=== PATIENT | male | born 1970 | race Caucasian/White ===

== ENCOUNTER 2022-05-10 15:40 | Emergency (ER) | payer BC, SELFPAY ==
[2022-05-10 16:20] VITALS: BP 148/82; PULSE 70; RESP 18; TEMP 36.8; O2SAT 97; BMI 30.8
--- NOTE | 2022-05-10 20:15 | CRLHL7_ITS ---
For Patients: As a result of the Cures Act, medical imaging exams and procedure reports are released immediately into your electronic medical record. You may view this report before your referring provider. If you have questions, please contact your health care provider. INDICATION: Crush injury. TECHNIQUE: Three views of the left hand. FINDINGS: Soft tissue swelling in the proximal 4th finger. No acute left hand fracture or dislocation. No radiopaque foreign body. Dictated by Ryan Lamb MD @ 05/10/2022 8:55:10 PM Dictated by: Ryan Lamb MD @ 05/10/2022 20:55:16 (Electronically Signed)
[2022-05-10 21:04] VITALS: BP 148/82; PULSE 70; RESP 18; TEMP 36.8
--- NOTE | 2022-05-10 21:07 | ED.WOUNDLAC ---
HPI - Wound/Laceration General Chief Complaint: Laceration/Wound Stated Complaint: LEFT HAND INJURY - FINGER LAC Time Seen by Provider: 05/10/22 20:32 History of Present Illness HPI narrative: 51-year-old man accompanied by spouse who is an orthopedic nurse, with concern injury potentially fracture to his left hand. Got his hand crushed between washing machine in a concrete floor earlier today. Trapped hand was drug a little bit along the floor as well. Helping son moved. In a very congested emergency department they have waited now a long time. This injury occurred about 6 hours ago. Reports a full dermal laceration on the dorsal finger the looks of close now. Most injuries sustained to the 4th finger in the area of pain. Apparently rather stoic man, has experienced tremendous pain without much complaint in the past. This has led to more concern than by his at this point. No other injuries were sustained. Related Data Home Medications Medication Instructions Recorded Confirmed No Known Home Medications 05/10/22 05/10/22 Allergies Allergy/AdvReac Type Severity Reaction Status Date / Time No Known Drug Allergies Allergy Verified 05/10/22 16:23 Review of Systems Status of ROS: Reports: 6 or more systems reviewed and unremarkable except as noted in History and below PFSH PFS Social History Smoking Status: Never smoker Do you use any of these nicotine containing products: None How often do you have a drink containing alcohol: never AUDIT-C Alcohol total score: 0 Exam Narrative: Exam Narrative: Tall large man. Calm. Pleasant. Skin is warm and dry and only area of injury left hand. Is able to flex and extend against resistance at all joints of the hand. There are abrasions that are oozing a little serous fluid on the dorsal surface of the 5th finger. Mild swelling generally. Does not look as though the fingernail is avulsed but the final injury is right on the roberta-ungual/lunar area. The 4th finger has taken the brunt of the injury. Most swelling over the interphalangeal joint. The dorsal radial surface the middle phalanx of this finger is a scabbed over area 1 cm laceration. It is not actively bleeding. This is the deeper full dermal injury they report. He does not have marked tenderness to bony palpation over his hand.. Hand along the lateral MCP joints is mildly swollen. Well -perfused. Const: Vital Signs, click to edit/add: Vital Signs - 24 hr 05/10/22 16:20 05/10/22 21:04 Temperature 98.2 F 98.2 F Pulse Rate [Right Pulse Oximeter] 70 70 Respiratory Rate 18 18 Blood Pressure [Ri ght Upper Arm] 148/82 H 148/82 H Pulse Oximetry 97 Oxygen Delivery Me thod Room Air Documenting provider has reviewed patient's vital signs: yes Course Course Hospital Course: X-rays appear negative for fracture on my read. Soft tissue swelling. Vital Signs Vital signs: Initial Vital Signs Temperature 98.2 F 05/10/22 16:20 Temperature Source Temporal Artery Scan 05/10/22 16:20 Pulse Rate 70 05/10/22 16:20 Respiratory Rate 18 05/10/22 16:20 Blood Pressure 148/82 H 05/10/22 16:20 Blood Pressure Mean 104 05/10/22 16:20 Blood Pressure Position Sitting 05/10/22 16:20 Pulse Oximetry 97 05/10/22 16:20 Oxygen Delivery Method 05/10/22 16:20 Vital Signs Temperature 98.2 F 05/10/22 16:20 Pulse Rate 70 05/10/22 16:20 Respiratory Rate 18 05/10/22 16:20 Blood Pressure 148/82 H 05/10/22 16:20 Pulse Oximetry 97 05/10/22 16:20 Oxygen Delivery Method 05/10/22 16:20 Temperature 98.2 F 05/10/22 21:04 Pulse Rate 70 05/10/22 21:04 Respiratory Rate 18 05/10/22 21:04 Blood Pressure 148/82 H 05/10/22 21:04 Pulse Oximetry 97 05/10/22 16:20 Oxygen Delivery Method 05/10/22 16:20 MDM - Wound/Laceration MDM Narrative Medical decision making narrative: No significant active bleeding. Wounds look clean. I offered to open up this reported full dermal laceration that looks to have sealed itself off, though do not think medically necessary at this point. Does not open up with flexing or extending fingers. Given the choice, they opted to treat conservatively without suturing. I placed antibiotic ointment and Band-Aids. Does not need splinting at this time. Recommended to ice regularly. Discharge Plan Discharge Clinical Impression: Crushing injury of finger(s), Laceration of finger, Multiple abrasions Patient Disposition: Home, Self-Care Condition: Stable Additional Instructions: Thanks again for your understanding and patience. Watch for spreading redness after 2 days, marked increase in pain/swelling/erythema, purulent drainage. I would use antibiotic ointment and Band-Aid for the next 3 or 4 days. Might then transition to dry dressing for another few days. Ibuprofen, acetaminophen, elevation for comfort. Prescriptions: No Action No Known Home Medications Follow Up/Referrals: Nicholas Cho MD [Primary Care Provider] - Stand Alone Forms: [employer] Info Instructions
== END 2022-05-10 21:05 | disposition home or self-care (01) ==
PROVIDERS: Emergency Provider Family Medicine; PCP Internal Medicine
DX: S67.195A Crushing injury of left ring finger, initial encounter (principal); W23.0XXA Caught, crushed, jammed, or pinched between moving objects, initial encounter
CPT/HCPCS: 73130; 99283

== ENCOUNTER 2022-12-24 07:50 | Outpatient (CLI) | payer BC, SELFPAY | END 2022-12-24 07:51 | disposition home or self-care (01) | LOC: NFLDREF 12-25 00:34 | PROVIDERS: PCP Internal Medicine; Referring Provider Internal Medicine; Visit Provider Internal Medicine | DX: Z12.5 Encounter for screening for malignant neoplasm of prostate (principal); Z13.6 Encounter for screening for cardiovascular disorders | CPT/HCPCS: 80053; 80061; 84153 ==

== ENCOUNTER 2024-01-01 07:03 | Outpatient (CLI) | payer BC, SELFPAY ==
--- OUTSIDE RECORDS SUMMARY | 2024-01-01 07:05 | XMS_ITS | Clinical Summary ---
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 Phone Pcp, No Primary Care Provider Unavailabl e Allergies Active Allergy Reactions Criticality Noted Date Comments Shellfish Containing Products Stomach Upset Medications No known medications Active Problems Problem Noted Date Diagnosed Date Allergic conjunctivitis 10/25/2013 Obesity, unspecified 01/04/2010 Family History Medical History Relation Name Comments Other Brother 2 Bryon LAURENT Cancer-prostate Father Hypertension Father Heart Disease Maternal Grandfather sx in his 60's Heart Disease Maternal Grandmother Thyroid Disease Mother Cancer Paternal Grandfather bone ca ncer Good Health Sister 5 Good Health Sister 6 Good Health Sister 7 Good Health Sister 8 Other Son 3 ADHD Good Health Son 4 Relation Name Status Comments Brother 1 Alive Brother 2 Bryon Father Alive Maternal Grandfather Maternal Grandmother Mother Alive Paternal Grandfather Sister 1 Alive Sister 2 Alive Sister 3 Alive Sister 4 Alive Sister 5 Sister 6 Sister 7 Sister 8 Son 1 Alive Son 2 Alive Son 3 Son 4 Social History Tobacco Use Types Packs/Day Years Used Date Smoking Tobacco: Never Tobacco Cessation:Counseling Given: Yes Alcohol Use Standard Drinks/Week Comments Yes 0 (1 standard drink = 0.6 oz pure alcohol) rarely; up to 2 drinks once a week/every other week Sex and Gender Information Value Date Recorded Sex Assigned at Not on file Gender Identity Not on file Sexual Orientation Not on file Obstetrics History Last Filed Vital Signs Vital Sign Reading Time Taken Comments Blood Pressure 130/86 03/06/2014 7:46 AM CDT Pulse 70 03/06/2014 7:46 AM CDT Temperature 36.8 ??C (98.3 ??F) 03/06/2014 7:46 AM CD T Respiratory Rate - - Oxygen Saturation 96% 03/06/2014 7:46 AM CDT Inhaled Oxygen Concentration - - Weight 120.8 kg (266 lb 6.4 oz) 03/06/2014 7:46 AM CDT Height 200.7 cm (6' 7.02) 03/06/2014 7:46 AM CD T Body Mass Index 30 03/06/2014 7:46 AM CDT Plan of Treatment Health Maintenance Due Date Last Done Comments Tdap 1982 Depression screening for age 12+ 1983 HIV for age 15-65 1986 BMI (ht and wt on same day) for age 18+ 1989 Hepatitis C screening for ag e 18-79 1989 Tetanus booster 1991 Colonoscopy through age 75 2016 Lipids for age 45-75 2016 01/04/2010, 07/08/2006 Zoster (shingles) series for age 50+ (1 of 2) 2021 COVID-19 vaccine series ( - 2022-24 season) 2023 Influenza for age 50-64 03/13/2024 Pneumococcal series for age 6-64 Aged Out No longer eligible b ased on patient's age to complete this topic Procedures Procedure Name Priority Date/Time Associated Diagnosis Comments LIPID PANEL W REFLEX MEASURED LDL Routine 01/04/2010 8:49 AM CDT Lipid screening from Last 3 Months or Most Recently Relevant to Health Maintenance Results * LIPID PANEL W REFLEX MEASURED LDL (01/04/2010 8:49 AM CDT) CHOLESTEROL,TOTAL 161 110 - 199 mg/dL [facility] TRIGLYCERIDES 63 <150 mg/dL [facility] HDL CHOLESTEROL 57 >40 mg/dL [facility] CHOL/HDL RATIO 2.83 <4.51 [facility] LDL CHOLESTEROL 91 <131 mg/dL [facility] PATIENT STATUS Fasting [facility] Blood specimen (specimen) BLOOD SPECIMEN / Unknown 01/04/2010 8:49 AM CDT 01/04/2010 8:43 AM CDT Elier Mitchell MD CHEMISTRY [facility] [address] [place] [address] from Last 3 Months or Most Recently Relevant to Health Maintenance Care Teams Sheetmetal Patternmaker Relationship Specialty Start Date End Date Pcp, No . PCP - General 10/25/13
--- NOTE | 2024-01-01 07:15 | CRLHL7_ITS ---
For Patients: As a result of the 21st Century Cures Act, medical imaging exams and procedure reports are released immediately into your electronic medical record. You may view this report before your referring provider. If you have questions, please contact your health care provider. CLINICAL INDICATION: Left shoulder pain. COMPARISON IMAGING STUDIES: Radiographs from 12/08/2023. TECHNICAL: Non-contrast MRI of the left shoulder. 1.5T MRI scanner. Axial, sagittal oblique and coronal oblique T1, PD, PD FS, T2 fat sat and T2-weighted images. FINDINGS: ROTATOR CUFF TENDONS AND MUSCLES: Mild distal supraspinatus tendinosis mild surface irregularity of the distal tendon suggesting fraying. No high-grade tendon tear or muscle atrophy. Distal infraspinatus teres minor tendons are intact infraspinatus and teres minor muscle mass are maintained. Distal subscapularis tendon is intact. Subscapularis muscle mass is maintained. ACROMIOCLAVICULAR JOINT AND CORACOACROMIAL ARCH: AC joint intact. Coracoclavicular ligament intact. Type 2 acromial morphology. No os acromiale. No significant subacromial spur. The acromiohumeral interval measures proximally 7 mm. No subacromial-subdeltoid bursal fluid collection. The subcoracoid interval measures 7 mm. BICEPS - LABRAL COMPLEX: Moderate to large amount of fluid within the biceps tendon sheath. No significant tear of that tendon. There is likely fraying of the superior and posterior superior labrum. GLENOHUMERAL JOINT: Glenohumeral joint capsular edema along with thickening of the axillary pouch compatible with capsulitis. Findings noted on coronal oblique PD fat-sat image number 17 of series 7 for example. No significant glenohumeral joint effusion. Suspected limited high-grade chondromalacia of the posterior inferior glenoid as subtly seen on axial PD fat-sat image number 19 of series 4 (grade 3). High-grade cartilage wear of the humeral head posteriorly (grade 3). No significant malalignment. OSSEOUS STRUCTURES: No fracture or avascular necrosis. SOFT TISSUES: No abnormality within the suprascapular or spinoglenoid notches nor within the quadrilateral space. IMPRESSION: 1. Left glenohumeral joint capsulitis. 2. Suspected limited high-grade glenohumeral joint cartilage wear involving the posterior humeral head and posterior inferior glenoid. Labral fraying. 3. Mild supraspinatus tendinosis with mild distal tendon fraying. 4. No bursitis. Dictated by Barry Caraballo MD @ 01/01/2024 2:16:01 PM (Electronically Signed)
== END 2024-01-01 07:04 | disposition home or self-care (01) ==
LOC: MRI 07:04
PROVIDERS: PCP Internal Medicine; Visit Provider Internal Medicine
DX: M25.512 Pain in left shoulder (principal); M77.8 Other enthesopathies, not elsewhere classified
CPT/HCPCS: 73221

== ENCOUNTER 2024-06-07 07:30 | Outpatient (RCR) | payer BC, SELFPAY | END 2024-10-05 23:59 | disposition home or self-care (01) | PROVIDERS: PCP Internal Medicine; Visit Provider Physician Assistant | DX: M19.012 Primary osteoarthritis, left shoulder (principal); M75.02 Adhesive capsulitis of left shoulder; M25.512 Pain in left shoulder; M25.612 Stiffness of left shoulder, not elsewhere classified; Z51.89 Encounter for other specified aftercare | CPT/HCPCS: 97110; 97140; 97162 ==

== ENCOUNTER 2025-01-26 09:29 | Outpatient (CLI) | payer BC, SELFPAY | END 2025-01-26 09:30 | disposition home or self-care (01) | PROVIDERS: PCP Internal Medicine; Visit Provider Internal Medicine | DX: E78.5 Hyperlipidemia, unspecified (principal); Z12.5 Encounter for screening for malignant neoplasm of prostate | CPT/HCPCS: 80053; 80061; G0103 ==

== ENCOUNTER 2025-02-22 12:43 | Outpatient (CLI) | payer BC, SELFPAY ==
--- NOTE | 2025-02-22 13:00 | CRLHL7_ITS ---
For Patients: As a result of the Century Cures Act, medical imaging exams and procedure reports are released immediately into your electronic medical record. You may view this report before your referring provider. If you have questions, please contact your health care provider. Indication: Degenerative disease of nervous system. Technique: MRI brain: Multiplanar multisequence MR imaging prior to and following intravenous administration of 20 mL Dotarem. MRA head: Alys-te-dvuspl imaging. MRA neck: Lcsq-ax-rmhdck and postcontrast imaging following intravenous administration of 20 mL Dotarem. Comparison: None. Findings: MRI brain: Mild diffuse cerebral volume loss. No mass effect or midline shift. Few punctate FLAIR hyperintensities in the supratentorial white matter, nonspecific. No intracranial hemorrhage or pathologic extra-axial fluid collection. No diffusion restriction to suggest acute infarction. No pathologic intracranial enhancement. The major arterial flow voids of the skull base are preserved. Globes are symmetric. Moderate right and small left maxillary sinus retention cysts. Small bilateral mastoid effusions. MRA head: The internal carotid arteries are widely patent. 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 The left middle cerebral the anterior cerebral arteries are widely patent. The vertebral, basilar, and posterior cerebral arteries are widely patent. No intracranial aneurysm or high-flow vascular malformation. MRA neck: The innominate and subclavian arteries are widely patent. The common carotid arteries are widely patent. The internal carotid arteries are widely patent. The vertebral arteries are codominant and widely patent. Impression: MRI brain: 1. No acute intracranial abnormality. 2. Few punctate FLAIR hyperintensities in the supratentorial white matter are nonspecific, though most typical for sequelae of migraine headaches or minimal chronic microvascular ischemic changes. 3. Mild diffuse cerebral volume loss. MRA head/neck: 1. 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 The intracranial vasculature is otherwise widely patent. 2. Widely patent cervical arteries. Dictated by Edward James MD @ 02/22/2025 5:08:51 PM (Electronically Signed)
== END 2025-02-22 12:44 | disposition home or self-care (01) ==
LOC: MRI 12:43
PROVIDERS: PCP Internal Medicine; Visit Provider Internal Medicine
DX: G31.9 Degenerative disease of nervous system, unspecified (principal); I66.01 Occlusion and stenosis of right middle cerebral artery
CPT/HCPCS: 70544; 70549; 70553; A9575

== ENCOUNTER 2025-03-21 06:25 | Day surgery (SDC) | payer BC, SELFPAY ==
[2025-03-21] VITALS (11 sets, daily range): BP systolic 117–134; BP diastolic 71–81; PULSE 63–71; RESP 12–18; TEMP 36.6–36.7; O2SAT 95–98; BMI 29.7
[2025-03-21] MEDS: LIDOCAINE 1%-EPI 1:100,000 20 ML INFILTRATI (07:08)
[2025-03-21] MEDS: BUPIVACAINE 0.5 %/EPI 1:200K INJECTION (07:08)
--- NOTE | 2025-03-21 08:18 | PM.ORPRC ---
Procedure Note Date of procedure: 03/21/25 Procedure: Preop diagnosis: Right upper extremity carpal tunnel syndrome Postop diagnosis: Right upper extremity carpal tunnel syndrome Procedure: Right upper extremity carpal tunnel release Anesthesia: Local Surgeon: Owen Parra MD first assistant manager: STEVEN Troy EBL: 2mL Complications: None Specimens: None Drains: None Indications: The patient has a history of right upper extremity carpal tunnel syndrome symptoms. Despite appropriate nonoperative management consisting of nighttime bracing and occupational therapy they continue to have symptoms. Operative intervention was recommended. The risks, benefits alternatives and expected outcomes were discussed in detail. These included but were not limited to: Infection, bleeding, injury to blood vessel or nerve, venous thromboembolism. All questions were answered to their satisfaction. The patient was placed supine on the operating room table. Local anesthesia was established with 0.5% Marcaine with epinephrine and 2% lidocaine with epinephrine. The hand was prepped and draped in usual sterile fashion. A longitudinal incision was made centered over the radial border of the ring finger at the base of the palm. Subcutaneous dissection was sharply taken through the palmar fascia and the palmaris brevis to the transverse carpal ligament. The ligament was divided in line with the incision. Proximal and distal dissection was carried with tenotomy and Metzenbaum scissors for a wide decompression of the carpal tunnel. The wound was closed with a 3-0 nylon. A bulky dry dressing was applied, sponge and needle counts were correct x 2. The patient tolerated the procedure well, there were no apparent complications. They were sent to same day surgery in satisfactory condition. Plan: Use of the hand as tolerates. Discontinue the intraoperative dressing on postoperative day 3 and may get the wound wet as tolerates. Follow up in the office in 2 weeks for a wound check and suture removal.
--- NOTE | 2025-03-22 10:25 | SUR.PREOP ---
SAME DAY SURGERY LOCAL INJECTION SITE VERIFICATION WAS PERFORMED BY PA AND PATIENT PRIOR TO LOCAL ANESTHETIC BEING INJECTED TO OPERATIVE SITE. 0715 03/21/2025
== END 2025-03-21 08:03 | disposition home or self-care (01) ==
LOC: OR 06:26
PROVIDERS: PCP Internal Medicine; Visit Provider Orthopaedic Surgery
PROC: (CPT 64721; principal; 2025-03-21 07:15)
DX: G56.01 Carpal tunnel syndrome, right upper limb (principal)
CPT/HCPCS: 64721; J3490

== ENCOUNTER 2025-06-01 06:24 | Day surgery (SDC) | payer BC, SELFPAY ==
[2025-06-01 06:30] VITALS: BMI 30.3
[2025-06-01] MEDS: BUPIVACAINE 0.5% 30 ML INJECTION (06:55)
[2025-06-01] MEDS: ETHYL CHLORIDE 1 APPLICATION 1 APPLIC TOPICAL (06:55)
[2025-06-01 07:20] VITALS: BP 126/80; PULSE 67; RESP 16; O2SAT 97
[2025-06-01 07:25] VITALS: BP 131/79; PULSE 64; RESP 16; O2SAT 96
[2025-06-01 07:30] VITALS: BP 126/75; PULSE 63; RESP 16; O2SAT 97
[2025-06-01 07:38] VITALS: BP 134/87; PULSE 65; RESP 16; TEMP 36.7; O2SAT 98
--- NOTE | 2025-06-01 07:38 | PM.ORPRC ---
Procedure Note Date of procedure: 06/01/25 Procedure: PREOPERATIVE DIAGNOSIS: 1. Left carpal tunnel syndrome POSTOPERATIVE DIAGNOSIS: 1. Left carpal tunnel syndrome PROCEDURE: 1. Left open carpal tunnel release SURGEON: Minh George MD. GRADUATE TEACHING ASSOCIATE: Lori Davis PA-C ANESTHESIA: Local anesthetic (50:50 mixture of 1% lidocaine with epi and 0.5% marcaine plain) - 10ml total IMPLANTS: None EBL: 2 mL TOURNIQUET: None COMPLICATIONS: None evident INDICATIONS: The patient is a pleasant 54-year-old male who has experienced left hand numbess/tingling affecting the radial 3.5 digits for multiple months. It has progressively gotten worse. Nonoperative management has been tried and failed, and therefore surgery was recommended. DESCRIPTION OF PROCEDURE: Following a thorough discussion of risks, benefits, and alternatives consent was obtained and the operative extremity was marked. The patient was brought to the operating room and placed supine on the operating table. Local anesthesia induction was undertaken in preop holding. No antibiotics were administered as this was planned to be a local case only. Proper time-out was performed identifying proper patient, site, and procedure. The operative extremity was prepped and draped in the appropriate sterile fashion using ChloraPrep. An incision was made in line with the radial border of the ring finger beginning 1 cm distal to the distal wrist crease and progressing for another 2.5cm distal. Caution was taken to stay proximal to 's cardinal line. Sharp incision through the skin, subcutaneous tissue, and palmar fascia was performed. The thenar musculature was bluntly elevated off the transverse carpal ligament. The ligament was directly visualized, and divided sharply with a 15 blade. This was released from its most proximal to the most distal extent. Metzenbaum scissor was also utilized to release the fascia extension proximally. We confirmed complete release of the transverse carpal ligament. Closure was performed with 4-O nylon in interrupted fashion. Soft dressings were applied, and the patient was transferred to the recovery room in stable condition. PLAN: 1. Encourage elevation of the operative extremity. 2. Range of motion of the fingers and hand/wrist as tolerated. 3. Ibuprofen/acetaminophen as needed for pain control. 4. Follow up with PA visit or nurse visit in 12-16 days for wound check and suture removal.
== END 2025-06-01 07:50 | disposition home or self-care (01) ==
LOC: OR 06:24
PROVIDERS: PCP Internal Medicine; Visit Provider Orthopaedic Surgery Sports Medicine
PROC: (CPT 64721; principal; 2025-06-01 07:15)
DX: G56.02 Carpal tunnel syndrome, left upper limb (principal)
CPT/HCPCS: 64721; J0665